=== PATIENT | male | born 1960 | race Caucasian/White ===

== ENCOUNTER 2023-10-18 07:21 | Emergency (ER) | payer BC ==
[2023-10-18 07:33] VITALS: BP 181/100; PULSE 56; RESP 16; TEMP 97.3; BMI 36.6
[2023-10-18] MEDS ORDERED: METOCLOPRAMIDE HCL INJECTION 10 MG/2 ML VIAL ONE (07:58)
[2023-10-18] MEDS ORDERED: MECLIZINE HCL 25 MG TABLET (FP) ONE (07:59)
[2023-10-18] MEDS ORDERED: ACETAMINOPHEN INJECTION 100 ML ONE (07:59)
[2023-10-18] MEDS: ACETAMINOPHEN 1000 MG/100 ML BAG IVPB ONE (08:04)
[2023-10-18] MEDS: MECLIZINE HCL 25 MG TABLET (FP) PO ONE (08:04)
[2023-10-18] MEDS: METOCLOPRAMIDE HCL INJECTION 10 MG/2 ML VIAL IVPB ONE (08:08)
[2023-10-18 08:20] LABS: HEMATOCRIT 44.9 % (35.4-49); HEMOGLOBIN 14.4 G/dL (11.7-16.9); MCH 27.3 pg (25.7-33.7); MCHC 32.1 g/dl (32.0-35.9); MEAN CELL VOLUME 85.1 fl (80-96); MEAN PLT VOLUME 8.7 fl (7.5-11.1); PLATELET COUNT 214.1 10^3/uL (134-434); RBC 5.28 10^6/uL (4.00-5.60); RDW 14.8 % (11.9-15.9); WHITE BLOOD COUNT 5.8 10^3/uL (4.0-10.8)
[2023-10-18 08:31] LABS: ALBUMIN 4.2 g/dl (3.4-5.0); ALK PHOS 62 U/L (45-117); ANION GAP 6 mmol/L (4-13); BILIRUBIN,TOTAL 0.4 mg/dl (0.2-1); CALCIUM 9.7 mg/dl (8.5-10.1); CHLORIDE 105 mmol/L (98-107); CO2 29 mmol/L (21-32); CREATININE 0.9 mg/dl (0.6-1.3); GLUCOSE,RANDOM 126 mg/dl (74-106); POTASSIUM 4.4 mmol/L (3.5-5.1); SGOT/AST 23 U/L (15-37); SGPT/ALT 67 U/L (7-52); SODIUM 140 mmol/L (136-145); TOT PROT 6.5 g/dl (6.4-8.2)
[2023-10-18 09:37] LABS: PLATELET ESTIMATE ADEQUATE
== END 2023-10-18 10:38 | disposition home or self-care (01) ==
LOC: FER 07:21
PROC: 3E033GC Introduction of Other Therapeutic Substance into Peripheral Vein, Percutaneous Approach (ICD-10-PCS; principal; 2023-10-18)
PROC: 3E033NZ Introduction of Analgesics, Hypnotics, Sedatives into Peripheral Vein, Percutaneous Approach (ICD-10-PCS; 2023-10-18)
DX: R42 Dizziness and giddiness (principal); R11.0 Nausea; R51.9 Headache, unspecified
CPT/HCPCS: 36415; 70450-TC; 80053; 84484; 85027; 93005; 99285-25; J0131